=== PATIENT | male | born 1985 | race Caucasian/White ===

== ENCOUNTER 2019-11-16 19:09 | Emergency (ER) | payer OTHER, SELFPAY ==
[2019-11-16 19:24] VITALS: BP 129/83; PULSE 79; RESP 16; TEMP 36.3; O2SAT 99
--- NOTE | 2019-11-16 19:31 | PC.NURSE ---
eye exam set up in rm 192
--- NOTE | 2019-11-16 19:33 | ED.GENADULT ---
HPI - General Adult General Chief complaint: Eye Problems Stated complaint: right eye pain Time Seen by Provider: 11/16/19 19:34 Source: patient and RN notes reviewed Mode of arrival: ambulatory Limitations: no limitations History of Present Illness HPI narrative: 34-year-old male presents with complains of foreign body in right eye after working in garage grinding a fiberglass canoe for 40 minutes. Irrigated eye with warm water for 10 minutes and Visine eye drops without relief. Mild redness, no drainage. Symptoms worsening. Exacerbating factor light and opening eye. Relieving factors is closing eyes. Denies blurred vision, double vision, or pain of eye with movement. Denies wearing glasses or contact lenses. Denies fever or chills. The patient reports he have not been diagnosed with COVID-19. The patient reports he is not waiting for the results of a COVID-19 lab test. The patient reports he do not have fever, chills, weakness, or fatigue. The patient reports he do not have a new or worsening cough or shortness of breath. Denies chest pain. The patient reports he do not have any rhinorrhea, congestion, sore throat, loss of taste, nausea, vomiting, abdominal pain, and diarrhea. Tolerating po intake well. Denies recent traveling. Denies concerns for COVID-19 or exposures been home with limited outdoor exposure except for essential household needs and return home. At this time, patient is not suspected of having COVID-19. Some parts of this dictation were generated by voice recognition software and may contain typographical and/or grammatical inaccuracies. Related Data Allergies Allergy/AdvReac Type Severity Reaction Status Date / Time No Known Allergies Allergy Verified 11/16/19 19:18 Review of Systems Review of Systems: Narrative: CONSTITUTIONAL: Denies fever, chills, sweats. EYES: Denies visual changes. Complains of RT eye foreign body sensation. Denies discharge. ENT: Denies rhinorrhea, congestion, sore throat, otalgia. CARDIOVASCULAR: Denies chest pain, palpitations, edema. RESPIRATORY: Denies dyspnea, wheezing, cough. GASTROINTESTINAL: Denies abdominal pain, nausea, vomiting, diarrhea. GENITOURINARY: Denies dysuria, hematuria, abnormal discharge. SKIN: Denies rash or itching. MUSCULOSKELETAL: Denies acute back pain, joint pain, or myalgia. NEUROLOGIC: Denies numbness or focal weakness. PSYCHIATRIC: Denies anxiety or depression. All systems reviewed & are unremarkable except as noted in HPI and below. [facility] Past Medical History Medical History (Updated 11/17/19 @ 00:00 by Valdo Castanon) No significant past medical history Surgical History Surgical History (Updated 11/16/19 @ 19:54 by SABRA Muniz) No significant past surgical history Family History Family History (Updated 11/16/19 @ 19:54 by SABRA Muniz) Mother Patient's mother is in good health Father Hypertension Sibling Patient's brother is in good health Social History Social History (Updated 11/16/19 @ 19:55 by SABRA Muniz) Smoking status: Former smoker Tobacco type: cigarettes Second hand tobacco smoke exposure: No Smoking end date: 02/23/09 Alcohol intake: current Substance use: never Living arrangements: with family Occupation/Education: occupation Gender identity (if verbalized by the patient): Male Sexual Orientation (if Verbalized by the Patient): Straight or Heterosexual Comments At time of signature, I have reviewed and agree with nursing past medical, surgical, social, and family history. Please see nursing chart for further information. There is no relevant family history pertinent to the presenting complaint. Exam Narrative: Exam Narrative: GENERAL: This is a well-nourished, well-developed patient, in no apparent distress. HEAD: normocephalic, atraumatic. EYES: PERRL. Sclera clear/white to LT eye only. RT eye sclera isacc and clear with clear watery drainag
== END 2019-11-16 20:00 | disposition home or self-care (01) ==
PROVIDERS: Emergency Provider Nurse Practitioner Family; PCP Internal Medicine
DX: S05.01XA Injury of conjunctiva and corneal abrasion without foreign body, right eye, initial encounter (principal); X58.XXXA Exposure to other specified factors, initial encounter; Z87.891 Personal history of nicotine dependence
CPT/HCPCS: 99203; G0463

== ENCOUNTER 2022-08-30 17:05 | Emergency (ER) | payer OTHER, SELFPAY ==
--- NOTE | ~2022-08-30 | CT_ITS ---
EXAMINATION: CT lumbar spine wo con DATE: 08/30/2022 17:59 INDICATION: right side radiculopathy, injury today . TECHNIQUE: Computed tomography (CT) of the lumbar spine was performed without intravenous contrast. A utomated exposure control and iterative reconstruction technique were employed. The dose-length produ ct was 856.06 mGy-cm. COMPARISON: None. FINDINGS: 5 nonrib-bearing lumbar-type vertebral bodies. Pedicles intact. Normal vertebral body align ment. Vertebral body heights preserved. Mild disc space at L4-5. Moderate disc space and L5-S1. 4 mm central protrusion at L4-5. 6 mm right paracentral protrusion, superimposed on a diffuse bulge at L5- S1. No severe central canal or neural foraminal narrowing. Normal facets and posterior elements. Punc johnson, nonobstructing right renal calculus. Distended urinary bladder. Granulomatous calcifications in the spleen. IMPRESSION: No acute fracture or traumatic malalignment in the lumbar spine. Moderate degenerative disc disease a t L5-S1. Punctate, nonobstructing right nephrolith. Distended urinary bladder. Reviewed, dictated and finalized at location K. IMPRESSION: No acute fracture or traumatic malalignment in the lumbar spine. Moderate degen erative disc disease at L5-S1. Punctate, nonobstructing right nephrolith. Distended urinary bladder.
--- NOTE | 2022-08-30 16:59 | ED.GENADULT ---
HPI - General Adult General Chief complaint: Back Pain/Injury Stated complaint: low back pain Source: patient Mode of arrival: EMS Limitations: no limitations History of Present Illness HPI narrative: This is a 37-year-old male who presents to the ED via EMS with chief complaint of lower back pain onset this afternoon following an injury. Patient was working on his shower when he underwent a twisting motion and had immediate pain in the low back. Reports that he was able to bring himself down to the ground. He laid flat on the ground for a couple of hours. He then tried to work on the shower again and had a similar type pain that brought him back down to the ground. He states he does not have any weakness in the extremities but walking is difficult due to pain. Reports radicular pain down the posterior RLE. Denies any recent fevers, chills, IVDA, saddle anaesthesia, bowel or bladder dysfunction. Patient states he has similar injury about 10 years ago but it had self resolved after a couple of weeks. Related Data Allergies Allergy/AdvReac Type Severity Reaction Status Date / Time No Known Allergies Allergy Verified 08/30/22 17:21 [facility] Past Medical History Medical History Abdominal pain of unknown cause Acute low back pain No significant past medical history Surgical History Surgical History No significant past surgical history Family History Family History Mother Hypertension Father Hypertension Sibling Patient's brother is in good health Grandparent Diabetes mellitus Heart disease Cerebrovascular accident Social History Social History Smoking status: Former smoker Tobacco type: cigarettes Second hand tobacco smoke exposure: No Smoking end date: 02/23/09 Alcohol intake: current Drinks per week: 7 Alcohol use details: beer Substance use: never Living arrangements: alone Occupation/Education: occupation 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 HEAD: Normocephalic, atraumatic. EYES: PERRLA and EOMI. ENT: Nares clear, no rhinorrhea or epistaxis. Mucous membranes moist. Oropharynx without tonsillar hypertrophy exudate or other lesions. NECK: Supple. No adenopathy or masses. CHEST: No respiratory distress. Clear to auscultation. No wheezes rales or rhonchi HEART: Regular rate and rhythm. No murmur heard. Normal peripheral pulses. ABDOMEN: Soft, nontender, nondistended, normal active bowel sounds. MSK: SLR postive on the right. SLR negative on the left. Mild lumbar paraspinal and midline tenderness. No cervical or thoracic tenderness. Neurovascular intact distally. SKIN: Warm, dry, no rash. NEURO: Alert and oriented x3. No focal deficits. 5 out of 5 strength and sensation throughout the upper and lower extremities. PSYCH: Normal mood and affect. Course Vital Signs Vital signs: Vital Signs Temperature 98.3 F 08/30/22 17:05 Pulse Rate 91 08/30/22 17:05 Respiratory Rate 18 08/30/22 17:05 Blood Pressure 127/84 08/30/22 17:05 Pulse Oximetry 100 08/30/22 17:05 Oxygen Delivery Room Air 08/30/22 17:05 Temperature 98.3 F 08/30/22 17:05 Pulse Rate 91 08/30/22 20:52 Respiratory Rate 18 08/30/22 20:52 Blood Pressure 137/82 08/30/22 20:52 Pulse Oximetry 100 08/30/22 20:52 Oxygen Delivery Room Air 08/30/22 17:05 Medical Decision Making [facility] Narrative Medical decision making narrative: This is a 37-year-old male who presents to the ED with chief complaints of lower back pain and righ
[2022-08-30 17:05] VITALS: BP 127/84; PULSE 91; RESP 18; TEMP 36.8; O2SAT 100
[2022-08-30] MEDS: ORPHENADRINE CITRATE 100 MG TABLET.ER PO (17:26)
[2022-08-30] MEDS: MORPHINE SULFATE (*CRX) 4 MG/ML INJ IV PUSH (18:35)
[2022-08-30] MEDS: ACETAMINOPHEN 325 MG TABLET 650 MG PO (19:16)
[2022-08-30 20:52] VITALS: BP 137/82; PULSE 91; RESP 18; O2SAT 100
== END 2022-08-30 20:56 | disposition home or self-care (01) ==
LOC: ANHED 17:40
PROVIDERS: Emergency Provider Physician Assistant; PCP Family Medicine
DX: S33.39XA Dislocation of other parts of lumbar spine and pelvis, initial encounter (principal); Z87.891 Personal history of nicotine dependence; R93.41 Abnormal radiologic findings on diagnostic imaging of renal pelvis, ureter, or bladder; X50.9XXA Other and unspecified overexertion or strenuous movements or postures, initial encounter
CPT/HCPCS: 72131; 96372; 96374; 99284; A9270; J1100; J2270

== ENCOUNTER 2022-10-01 15:45 | Outpatient (RCR) | payer OTHER, SELFPAY ==
--- NOTE | 2022-09-11 15:28 | PTOPEVAL1 ---
Assessment and note entered by Misbah Irby, PT, DPT Evaluation Information Assessment Status Evaluation Diagnosis low back pain Onset 1 week Subjective Information Pt states he was working on his shower and stepped in and squatted at the same time to work, he states as he was getting up to get out of the tub he said the pain was crippling and he had a controlled fall to the floor d/t the pain. He states his pain is mostly on the R side and goes all the way down to his lower leg. After the initial injury he states he could not sit or walk for 5 days. He states this happened about 10 years ago and it took him about 2 weeks to recover, he attempted PT but was able to complete it d/t pain. He states it has gotten minimally better in the last week. He states he does not have pain when laying on his stomach. Reported Pain Level Pain Score 3: Self Report Assessment PT Clinical Summary Piotr presents to therapy today for his initial evaluation with a diagnosis of lumbar radiculopathy. Today he demonstrates decreased active trunk motion in all directions that is limited by pain, LE ROM and strength limited, and a positive slump test. He also demonstrates tenderness to palpation in his hip and lumbar paraspinal musculature. Skilled physical therapy services are indicated for pain manage, to return to PLOF, and to educate on proper lifting technuqies to avoid reinjury. Plan of Care Interventions Electrical Stimulation,Gait Training,Hot Pack/Cold Pack,Manual Therapy,Mechanical Traction,Neuro Re- education,Patient/Caregiver Educati,Therapeutic Activities,Therapeutic Exercise,Ultrasound PT Services Indicated Yes Treatment Frequency and 2x/wk for 4 wks Duration These treatments will address the objective and functional deficits as defined above. The patient will be advanced safely and appropriately in order for the patient to progress towards his/her prior level of function. Additional exercises will be introduced and as well as a comprehensive home exercise program upon discharge, if needed, ?to ensure carryover of functional gains achieved in the clinic. This treatment plan has been reviewed and agreement upon by the patient.
--- NOTE | 2022-09-11 15:28 | OPREHPOC ---
Outpatient Therapy Plan of Care This is a Multidisciplinary Plan of Care that may contain components documented by all disciplines (PT, OT, and ST.) PT Problem 1 PT Problem #1 Knowledge Deficit PT Goal 1 Goal Pt to be IND with issued HEP Target Visit 8 PT Problem 2 PT Problem #2 Pain PT Goal 1 Goal Pt to report back pain no greater than 3/10 in the last week. Target Visit 8 PT Goal 2 Goal Pt to report 75% improvement in overall symptoms. Target Visit 8 PT Problem 3 PT Problem #3 Impaired Range of Motion PT Goal 1 Goal Pt to demonstrate normal lumbar and LE rom that is not limited by pain Target Visit 8 PT Goal 2 Goal Pt to report equal stretch sensation with passive piriformis stretching Target Visit 8 PT Problem 4 PT Problem #4 Impaired Functional Mobil PT Goal 1 Goal Pt will demonstrate a 30lb lift and carry from ground level without deviations Target Visit 8 PT Goal 2 Goal Pt to demonstrate spinal neutral posture during bendling and lifting assessment Target Visit 8 PT Problem 5 PT Problem #5 Impaired Sensation PT Goal 1 Goal Pt will report no altered sensation in the last week Target Visit 8
--- NOTE | 2022-10-01 16:37 | PTOPDC ---
Assessment and note entered by Misbah Irby, PT, DPT Evaluation Information Assessment Status Discharge Diagnosis low back pain Onset 1 week Subjective Information Pt states overall he is doing great. He has not had any pain for 1-2 weeks and has been increasing his activty at home. He reports his pain as a 2/ 10 at the worst in the last week and that was from a [address] Reported Pain Level Pain Score 0: Self Report Assessment PT Clinical Summary Piotr presents to therapy today for his progress report following 7 visits of skilled therapy diagnosis of lumbar radiculopathy. Today he demonstrates lumbar ROM that is pain free and WNL. He demonstrates good LE strength states is not increased with pain. He has met all of his therapy goals and will be discharged at this time. Plan of Care PT Services Indicated No
== END 2022-10-02 09:19 | disposition home or self-care (01) ==
LOC: ANHGOSHPT 15:45
PROVIDERS: PCP Family Medicine; Visit Provider Family Medicine
DX: M54.16 Radiculopathy, lumbar region (principal)
CPT/HCPCS: 97014; 97110; 97112; 97140; 97161; 97530; G0283

== ENCOUNTER 2023-08-25 09:05 | Outpatient (CLI) | payer OTHER, SELFPAY ==
[2023-08-25 13:44] LABS: Cholesterol 183 mg/dL (0-200); HDL Direct 31 mg/dL; Triglycerides 122 mg/dL (<150)
[2023-08-25 13:56] LABS: LDL Cholesterol Direct 117 mg/dL
[2023-08-25 14:01] LABS: Vitamin D 25 Hydroxy 66.3 ng/mL
== END 2023-08-25 09:06 | disposition home or self-care (01) ==
LOC: ANHGOSHLAB 09:07
PROVIDERS: PCP Family Medicine; Visit Provider Family Medicine
DX: E55.9 Vitamin D deficiency, unspecified (principal); E78.5 Hyperlipidemia, unspecified
CPT/HCPCS: 36415; 80061; 82306